=== PATIENT | female | born 2000 | race Caucasian/White ===

== ENCOUNTER → 2023-05-15 | Outpatient (CLI) | payer BC ==
--- NOTE | 2023-05-15 07:56 | US ---
EXAMINATION TYPE: US duplex aorta DATE OF EXAM: 05/15/2023 COMPARISON: NONE CLINICAL INDICATION: Female, 23 years old with history of Z82.49 FAM HX HEART DISEASE; Patient has co nnective tissue disorder. TECHNIQUE: Multiple sonographic images of the abdominal aorta are obtained. FINDINGS: EXAM MEASUREMENTS: Abdominal Aorta: Proximal: 1.7 x 2.1 Mid: 1.4 x 1.3 Distal: 0.8 x 1.1 Bifurcation: Right Iliac: 0.9 x 1.0 Left Iliac: 0.8 x 0.7 HELP DESK MANAGER NOTES: No evidence of AAA IMPRESSION: No evidence for hemodynamically significant stenosis
== END | disposition home or self-care (01) ==
LOC: RADUSWWP 07:05
PROVIDERS: ATTEND Family Medicine
DX: L94.9 Localized connective tissue disorder, unspecified (principal); Z82.49 Family history of ischemic heart disease and other diseases of the circulatory system
CPT/HCPCS: 93979